=== PATIENT | female | born 1930 | race Caucasian/White ===

== ENCOUNTER 2016-04-16 16:28 | Emergency (ER) | payer MEDICARE ==
[~2016-04-16] VITALS: Ht 162.6 cm; Wt 69.0 kg
[~2016-04-16 16:28] MED LIST: CYMB60CA PO; FIORTAB4 PO; LEVO100T60 PO; NEXI40CA PO; TOPI25CA PO; TUMS500C CHEW
[2016-04-16 16:44] VITALS: BP 141/78; PULSE 76; RESP 18; TEMP 98.4; O2SAT 96
[2016-04-16 18:26] VITALS: BP 164/80; PULSE 71; RESP 18; O2SAT 97
[2016-04-16] MEDS ORDERED: GAVICHW CHEW (18:34)
[2016-04-16] MEDS ORDERED: LEVO125T4 PO (18:34)
[2016-04-16] MEDS ORDERED: DULO1CAP2 PO (18:34)
[2016-04-16] MEDS ORDERED: BUTA1CAP PO (18:34)
[2016-04-16] MEDS ORDERED: CYCL1TAB29 PO (18:35)
--- NOTE | 2016-04-16 20:12 | PD ---
HPI Chief Complaint: Pain: Acute or Chronic Time Seen by Provider: 19:49 Travel History International Travel<30 days: No Contact w/Intl Traveler<30days: No Traveled to known affect area: No History of Present Illness HPI 85-year-old female complains of upper back pain, low back pain and right hip pain. Patient states that she started having back pain with radiation to the right hip and right leg for the past 3 days. Patient denies any recent injury. Patient has history of scoliosis with back surgery in the past. Patient denies any focal weakness or numbness of the lower extremity. Patient states that she is unable to urinate for the past 6 hours. Patient denies any abdominal pain. Patient denies any fever chills. Patient denies any dysuria or frequency. PFSH Past Medical History Arthritis: Yes Asthma: No Autoimmune Disease: No Blood Disorders: No Anxiety: No Depression: Yes Heart Rhythm Problems: No Cancer: No Cardiovascular Problems: Yes (MVP) High Cholesterol: Yes Chest Pain: Yes Congestive Heart Failure: No COPD: No Diabetes: No Diminished Hearing: No Endocrine: Yes Gastrointestinal Disorders: Yes (GASTROPARESIS) GERD: Yes Glaucoma: No Genitourinary: Yes (NEUROGENIC BLADDER) Headaches: Yes Hepatitis: No Hypertension: Yes Immune Disorder: No Implanted Vascular Access Dvce: Yes Musculoskeletal: Yes Neurologic: Yes Psychiatric: Yes Reproductive: No Respiratory: Yes Sleep Apnea: Yes Thyroid Disease: Yes Ulcer: Yes Menopausal: Yes : 10 Para: 5 Past Surgical History Abdominal Surgery: Yes (CHOLECYSTECTOMY, LAPAROSCOPIC LYSIS OF ADHESIONS) AICD: No Appendectomy: Yes Arteriovenous Shunt: No Body Medical Devices: RIGHT HIP AMY, PINS XIANG LARGE TOES Cardiac Surgery: No Cholecystectomy: Yes Ear Surgery: No Endocrine Surgery: No Eye Surgery: Yes (XIANG. CATARACT EXTRACT) Genitourinary Surgery: No Gynecologic Surgery: Yes (TAHBSO) Hysterectomy: Yes (1974) Insulin Pump: No Joint Replacement: No Neurologic Surgery: No Oral Surgery: No Pacemaker: No Thoracic Surgery: Yes (FUNDOPLICATION) Other Surgery: Yes (GERD SURGERY X 2) Social History Alcohol Use: Yes (RARE) Tobacco Use: No Substance Use: No Allergies-Medications (Allergen,Severity, Reaction): Coded Allergies: Contrast Media (Verified Allergy, Severe, ANAPHYLAXIS, 04/16/16) Daypro (Verified Allergy, Severe, 04/16/16) Drixoral (Verified Allergy, Severe, HYPOTENSION, 04/16/16) Lortab (Verified Allergy, Severe, VOMITING, 04/16/16) Stadol (Verified Allergy, Severe, Hard to Focus, 04/16/16) Codeine (Verified Adverse Reaction, Severe, N/V, 04/16/16) Demerol (Verified Adverse Reaction, Severe, N/V, 04/16/16) Reported Meds & Prescriptions Reported Meds & Active Scripts Active Reported Flexeril (Cyclobenzaprine HCl) 10 Mg Tab 10 Mg PO TID Levothyroxine (Levothyroxine Sodium) 125 Mcg Tab 125 Mcg PO DAILY Fioricet (Xxhvtlsipq-Xpsmsupihwlug-Hbffgeqe) 50-300-40 Mg Cap 1 Cap PO Q4H PRN Duloxetine DR (Duloxetine HCl) 30 Mg Capdr 30 Mg PO DAILY Gaviscon (Aluminum Hydroxide-Mag Trisil) 80-14.2 mg Chew 2-4 Tab CHEW QID PRN Maximum 16 tabs/24 hrs Review of Systems General / Constitutional: No: Fever Eyes: No: Visual changes HENT: No: Headaches Cardiovascular: No: Chest Pain or Discomfort Respiratory: No: Shortness of Breath Gastrointestinal: No: Abdominal Pain Genitourinary: No: Dysuria Musculoskeletal: No: Pain Skin: No Rash Neurologic: No: Weakness Psychiatric: No: Depression Endocrine: No: Polydipsia Hematologic/Lymphatic: No: Easy Bruising Physical Exam Narrative GENERAL: Well-nourished, well-developed patient. SKIN: Warm and dry. HEAD: Normocephalic. EYES: No scleral icterus. No injection or drainage. NECK: Supple, trachea midline. No JVD or lymphadenopathy. CARDIOVASCULAR: Regular rate and rhythm without murmurs, gallops, or rubs. RESPIRATORY: Breath sounds equal bilaterally. No accessory muscle use. GASTROINTESTINAL: Abdomen soft, non-tender, nondistended. MUSCULOSKELETAL: No cyanosis, or edema. BACK: Mild tenderness on palpation thoracic area and moderate tenderness on the mid to low lumbar area, without obvious deformity. No CVA tenderness. Negative straight leg raising. Neurologic exam: Patient is awake and alert oriented 3. Patient moves all extremity well. No obvious focal neurological deficit. Data Data Last Documented VS Vital Signs Date Time Temp Pulse Resp B/P Pulse Ox O2 Delivery O2 Flow Rate FiO2 04/16/16 21:42 69 20 122/74 96 Room Air 04/16/16 16:44 98.4 Orders Urinalysis - C+S If Indicated (04/16/16 20:03) Morphine Inj (Morphine Inj) (04/16/16 20:15) Ondansetron Inj (Zofran Inj) (04/16/16 20:15) Cath For Specimen (04/16/16 20:05) Ct Thor Spine W/O Contrast (04/16/16 20:05) Ct Lumb Spine W/O Contrast (04/16/16 20:05) Hip, Uni(Ap&Lat) W Ap Pelvis (04/16/16 20:05) Urine Culture (04/16/16 20:54) Labs Laboratory Tests Test 04/16/16 20:54 Urine Color LIGHT-YELLOW Urine Turbidity CLEAR Urine pH 5.5 Urine Specific [place] 1.004 Urine Protein NEG mg/dL Urine Glucose (UA) NEG mg/dL Urine Ketones NEG mg/dL Urine Occult Blood NEG Urine Nitrite POS Urine Bilirubin NEG Urine Urobilinogen LESS THAN 2.0 MG/DL Urine Leukocyte Esterase SMALL Urine WBC 3 /hpf Urine Bacteria RARE /hpf Microscopic Urinalysis Comment CATH-CULTURE IND MDM Medical Decision Making Medical Screen Exam Complete: Yes Emergency Medical Condition: Yes Interpretation(s) Last Impressions Thoracic Spine CT 04/16/162004 Signed Impressions: Service Date/Time: Saturday, April 16, 2016 20:39 - CONCLUSION: 1. Moderate degenerative change. No acute fracture. Garry Gillis MD Hip and Pelvis X-Ray 04/16/162004 Signed Impressions: Service Date/Time: Saturday, April 16, 2016 20:26 - CONCLUSION: 1. Previous amy fixation right femur. No acute fracture identified. Garry Gillis MD 22:09 PM. UA shows rare bacteria. Differential Diagnosis Differential diagnosis including muscle spasm, HNP, fracture, spinal stenosis. Narrative Course 85-year-old female with low back pain with radiation to right leg and right hip. Diagnosis Primary Impression: Acute exacerbation of chronic low back pain Additional Impression: Arthralgia of right hip Patient Instructions: General Instructions Med/Other Pt SpecificInfo: Prescription(s) given Scripts Promethazine (Phenergan)25 Mg Tab25 Mg PO Q6H PRN (Nausea/Vomiting) #20 TAB Ref 0 Prov:Anastacio Florentino MD 04/16/16 Methocarbamol (Robaxin)750 Mg [id number] Mg PO QID #80 TAB Prov:Anastacio Florentino MD 04/16/16 Tramadol (Ultram)50 Mg Tab50 Mg PO Q6H PRN (PAIN) #30 TAB Prov:Anastacio Florentino MD 04/16/16 Disposition: 01 DISCHARGE HOME Condition: Stable Anastacio Florentino MD Apr 16, 2016 20:12
[2016-04-16] MEDS ORDERED: MORPHINE SULFATE 4 MG/ML INJ IV PUSH ONE ×2 (20:15→22:45)
[2016-04-16] MEDS ORDERED: ONDANSETRON HCL 4 MG/2 ML VIAL IV PUSH ONE (20:15)
[2016-04-16 21:16] LABS: BACTERIA, URINE RARE /hpf; BLOOD, URINE NEG (NEG); GLUCOSE,URINE NEG (NEG); KETONE, URINE NEG (NEG); NITRITE,URINE POS (NEG); PH, URINE 5.5 (5.0-8.5); URINE COLOR LIGHT-YELLOW (YELLW/STRAW)
[2016-04-16 21:17] LABS: COMMENT (UR) CATH-CULTURE IND; CULTURE IF INDICATED CATH CULTURE IND
--- NOTE | 2016-04-16 21:38 | RADRPT ---
EXAM DATE/TIME: 04/16/2016 20:26 [facility] COMPARISON: No previous studies available for comparison. INDICATIONS : Right hip pain with no known injury. MEDICAL HISTORY : None. SURGICAL HISTORY : Lumbar fusion, right hip ORIF. ENCOUNTER: Initial ACUITY: 3 days PAIN SCORE: 10/10 LOCATION: Right hip. FINDINGS: There is lio fixation of the proximal right femur. There is also fixation of the lower lumbar spine. No acute fracture identified at the right hip. CONCLUSION: 1. Previous lio fixation right femur. No acute fracture identified. Garry Gillis MD on April 16, 2016 at 21:35 Board Certified Radiologist. This report was verified electronically.
[2016-04-16 21:42] VITALS: BP 122/74; PULSE 69; RESP 20; O2SAT 96
--- NOTE | 2016-04-16 21:57 | RADRPT ---
EXAM DATE/TIME: 04/16/2016 20:39 [facility] COMPARISON: No previous studies available for comparison. INDICATIONS : Chronic lower back pain. RADIATION DOSE: 35.86 CTDIvol (mGy) ; Combined studies - Thoracic Spine/Lumbar Spine MEDICAL HISTORY : Chronic back issues. SURGICAL HISTORY : Appendectomy. Cholecystectomy. ENCOUNTER: Initial ACUITY: >1 yr PAIN SCALE: 5/10 LOCATION: lower back TECHNIQUE: Volumetric scanning of the thoracic spine was performed. Multiplanar reconstructions in the sagittal , coronal and oblique axial planes were performed. Using automated exposure control and adjustment o f the mA and/or kV according to patient size, radiation dose was kept as low as reasonably achievable to obtain optimal diagnostic quality images. 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 No acute fracture or spondylolisth esis. No significant bony canal stenosis. There is fusion of the upper lumbar spine. CONCLUSION: 1. Moderate degenerative change. No acute fracture. Garry Gillis MD on April 16, 2016 at 21:51 Board Certified Radiologist. This report was verified electronically.
--- NOTE | 2016-04-16 22:02 | RADRPT ---
EXAM DATE/TIME: 04/16/2016 20:39 [facility] COMPARISON: No previous studies available for comparison. INDICATIONS : Chronic back pain. RADIATION DOSE: 35.86 CTDIvol (mGy) ; Combined studies - Thoracic Spine/Lumbar Spine MEDICAL HISTORY : Chronic back issues. SURGICAL HISTORY : Appendectomy. Cholecystectomy. ENCOUNTER: Initial ACUITY: 1 day PAIN SCALE: 5/10 LOCATION: lower back TECHNIQUE: Volumetric scanning of the lumbar spine was performed. Multiplanar reconstructions in the sagittal, coronal and oblique axial planes were performed. Using automated exposure control and adjustment of the mA and/or kV according to patient size, radiation dose was kept as low as reasonably achievable t o obtain optimal diagnostic quality images. FINDINGS: There is advanced degenerative disc disease of the lumbar spine with a rotatory moderate to severe le voscoliosis. There is fixation extending from L2-3-4-5-S1. Overall no significant central canal steno sis identified. No acute fracture or significant spondylolisthesis. CONCLUSION: 1. No acute fracture of the lumbar spine. Advanced degenerative disc disease with a moderate to sever e levoscoliosis status post fixation as above. Garry Gillis MD on April 16, 2016 at 21:56 Board Certified Radiologist. This report was verified electronically.
[2016-04-16] MEDS ORDERED: PROM25TA5 PO (22:15)
[2016-04-16] MEDS ORDERED: ROBA750T PO (22:15)
[2016-04-16] MEDS ORDERED: ULTR50TA5 PO (22:15)
[2016-04-16 22:21] VITALS: BP 127/80
== END 2016-04-16 23:19 | disposition home or self-care (01) ==
LOC: NEPA 16:28
DX: M54.5 Low back pain (principal); G89.29 Other chronic pain; M25.551 Pain in right hip; E78.00 Pure hypercholesterolemia, unspecified; I10 Essential (primary) hypertension; E07.9 Disorder of thyroid, unspecified; G47.30 Sleep apnea, unspecified; K21.9 Gastro-esophageal reflux disease without esophagitis; K31.84 Gastroparesis; B95.7 Other staphylococcus as the cause of diseases classified elsewhere; R82.90 Unspecified abnormal findings in urine
CPT/HCPCS: 72128; 72131; 73502; 81001; 86403; 87077; 87086; 87186; 96374; 96375; 99284; J2270; J2405; P9612